=== PATIENT | female | born 1995 | race Two or more races ===

== ENCOUNTER 2019-09-12 22:35 | Emergency (ER) | payer MEDICAID ==
[~2019-09-12] VITALS: Ht 167.6 cm; Wt 79.0 kg
[2019-09-12 23:57] VITALS: BP 120/68
== END 2019-09-12 23:55 | disposition home or self-care (01) ==
LOC: ER 22:35
DX: S80.812A Abrasion, left lower leg, initial encounter (principal); S80.811A Abrasion, right lower leg, initial encounter; F17.200 Nicotine dependence, unspecified, uncomplicated; Y93.52 Activity, horseback riding; Y93.89 Activity, other specified; Y92.9 Unspecified place or not applicable
CPT/HCPCS: 99282

== ENCOUNTER 2022-04-03 02:12 | Emergency (ER) | payer MEDICAID ==
[~2022-04-03] VITALS: Ht 167.6 cm; Wt 90.0 kg
[~2022-04-03 02:12] MED LIST: METH-773 PO; NAPR-681 MT
[2022-04-03 02:17] VITALS: BP 126/83
[2022-04-03] MEDS ORDERED: NAPR-681 MT (05:34)
[2022-04-03] MEDS ORDERED: IBUPROFEN 800MG TABLET PO ONE (05:45)
== END 2022-04-03 05:52 | disposition home or self-care (01) ==
LOC: ER 02:12
DX: S60.211A Contusion of right wrist, initial encounter (principal); S80.11XA Contusion of right lower leg, initial encounter; V49.49XA Driver injured in collision with other motor vehicles in traffic accident, initial encounter; Y93.89 Activity, other specified; Y92.89 Other specified places as the place of occurrence of the external cause; Y99.8 Other external cause status
CPT/HCPCS: 73090; 73110; 73552; 81025; 99284

== ENCOUNTER 2022-10-29 07:13 | Emergency (ER) | payer MEDICAID ==
[~2022-10-29] VITALS: Ht 167.6 cm; Wt 89.0 kg
[2022-10-29] MEDS ORDERED: IBUPROFEN 400MG TABLET PO ONE (09:15)
[2022-10-29] MEDS ORDERED: ACETAMINOPHEN 325MG TABLET PO ONE (09:15)
[2022-10-29] MEDS ORDERED: LIDOCAINE 5% PATCH TOP SCH (09:15)
[2022-10-29 09:39] VITALS: BP 134/90
[2022-10-29] MEDS ORDERED: ACET-2708 MT (10:16)
== END 2022-10-29 10:26 | disposition home or self-care (01) ==
LOC: ER 07:13
DX: M54.50 Low back pain, unspecified (principal); V43.52XA Car driver injured in collision with other type car in traffic accident, initial encounter; Y93.89 Activity, other specified; Y92.410 Unspecified street and highway as the place of occurrence of the external cause
CPT/HCPCS: 99284

== ENCOUNTER 2022-12-11 07:02 | Emergency (ER) | payer MEDICAID ==
[~2022-12-11] VITALS: Ht 167.6 cm; Wt 89.0 kg
[~2022-12-11 07:02] MED LIST changes: +ACET-2708 MT
[2022-12-11 07:54] VITALS: BP 115/79
== END 2022-12-11 13:18 | disposition home or self-care (01) ==
LOC: ER 07:02
DX: M25.471 Effusion, right ankle (principal)
CPT/HCPCS: 93971; 99284

== ENCOUNTER 2023-04-10 11:51 | Emergency (ER) | payer MEDICAID ==
[~2023-04-10] VITALS: Ht 167.6 cm; Wt 98.0 kg
[2023-04-10] MEDS ORDERED: LIDOCAINE 5% PATCH TOP SCH (15:45)
[2023-04-10] MEDS ORDERED: IBUPROFEN 400MG TABLET PO ONE (15:45)
[2023-04-10] MEDS ORDERED: METHOCARBAMOL 750MG TABLET PO SCH (15:45)
[2023-04-10] MEDS ORDERED: IBUPROFEN 400MG TABLET PO NR (16:15)
[2023-04-10] MEDS ORDERED: IBUP-2028 MT (16:28)
[2023-04-10] MEDS ORDERED: TOPUD PO (16:28)
[2023-04-10 17:03] VITALS: BP 131/87
== END 2023-04-10 17:05 | disposition home or self-care (01) ==
LOC: ER 11:51
DX: S13.4XXA Sprain of ligaments of cervical spine, initial encounter (principal); V49.9XXA Car occupant (driver) (passenger) injured in unspecified traffic accident, initial encounter; Y93.89 Activity, other specified; Y92.89 Other specified places as the place of occurrence of the external cause; Y99.8 Other external cause status
CPT/HCPCS: 71045; 72110; 81025; 99284

== ENCOUNTER 2024-06-05 15:55 | Emergency (ER) | payer MEDICAID ==
[~2024-06-05] VITALS: Ht 167.6 cm; Wt 100.0 kg
[~2024-06-05 15:55] MED LIST changes: +IBUP-2028 MT; +TOPUD PO
[2024-06-05 16:28] VITALS: O2SAT 100
[2024-06-05] MEDS ORDERED: CYCL10TA21 MT (18:59)
[2024-06-05] MEDS: KETOROLAC 30MG/ML VIAL IM ONE (19:47)
[2024-06-05 20:17] VITALS: BP 121/69; PULSE 84; RESP 16; TEMP 98.5
== END 2024-06-05 20:17 | disposition home or self-care (01) ==
LOC: ER 15:55
DX: G89.29 Other chronic pain (principal); M54.9 Dorsalgia, unspecified; Z79.899 Other long term (current) drug therapy
CPT/HCPCS: 99283; 96372; J1885